=== PATIENT | male | born 1930 | race Caucasian/White ===

== ENCOUNTER 2016-10-24 18:53 | Inpatient (IN) | payer MEDICARE, OTHER ==
[~2016-10-24] VITALS: Ht 182.9 cm; Wt 97.3 kg
[~2016-10-24 18:53] MED LIST: ASPI81TA; GLYB5TAB8; LISI-646; PIOG45TA6; PRO20T; SITA50TA13; TRIA50CA38; VEN75XRT; VENL150C OR
[2016-10-24] MEDS ORDERED: DEXTROSE 50% SYRINGE 50 ML IV ONE (19:14)
[2016-10-24] MEDS ORDERED: DEXTROSE (50%) 50ML SYRG IV ONE ×2 (19:30)
[2016-10-24 20:59] LABS: Basophils # (auto) 0 uL; Basophils % (auto) 0.4 % (0.0-2.0); DEFINITIVE VIEW TRANSMISSION; Eosinophils # (auto) 0 uL; Eosinophils % (auto) 0.7 % (0.0-7.0); Hematocrit 36.9 % (41.0-53.0); Hemoglobin 12.3 g/dL (13.5-17.5); Lymphocytes # (auto) 1.1 uL; Lymphocytes % (auto) 19.1 % (10.0-50.0); Mean Corpuscular Hemoglobin 34.9 pg (28.0-32.0); Mean Corpuscular Hgb Conc. 33.2 g/dL (32.0-36.0); Mean Corpuscular Volume 105.2 fL (80.0-100.0); Monocytes # (auto) 0.4 uL; Monocytes % (auto) 7.5 % (0.0-12.0); Neutrophils # (auto) 4.3 uL; Neutrophils % (auto) 72.3 % (37.0-80.0); Platelet Count (auto) 164 10^3/uL (140-450); Red Cell Distribution Width 14.3 % (11.6-16.0); White Blood Cell 5.9 10^3/uL (4.4-10.8)
[2016-10-24 21:12] LABS: INR 1.1 (0.9-1.15); Partial Thromboplastin Time 24.7 sec (22.64-33.71); Prothrombin Time 11.3 sec (9.37-12.3)
[2016-10-24 21:20] LABS: Anion Gap 8 (5-15); Aspartate Aminotransferase 14 U/L (15-37); BUN/Creatinine Ratio 13.6; Blood Urea Nitrogen 17 mg/dL (7-18); Calcium 8.6 mg/dL (8.5-10.1); Carbon Dioxide 28 mmol/L (21-32); Chloride 103 mmol/L (98-107); GFR African American 71 mL/min; GFR Non-African American 58 mL/min; Glucose 150 mg/dL (74-106); Magnesium 2.2 mg/dL (1.6-2.6); Sodium 139 mmol/L (136-145)
[2016-10-24 21:25] LABS: Albumin 3.4 g/dL (3.4-5.0); Alkaline Phosphatase 82 U/L (45-117); Bilirubin, Total 0.5 mg/dL (0.2-1.0); Total Protein 7.3 g/dL (6.4-8.2)
[2016-10-24 21:27] LABS: B-Type Natriuretic Peptide 68.91 pg/mL (0-100)
[2016-10-24 21:35] LABS: Temperature: 23.1 C (20.0-25.0)
[2016-10-25] MEDS ORDERED: MORPHINE SULF INJ 2 MG/ML SYRINGE 1ML IV PRN (01:45)
[2016-10-25] MEDS ORDERED: ONDANSETRON HCL 4 MG/2 ML VIAL IV PRN (01:45)
[2016-10-25] MEDS ORDERED: DEXTROSE (50%) 50ML SYRG IV PRN (01:45)
[2016-10-25] MEDS ORDERED: NITROGLYCERIN 0.4 MG SL TAB SL PRN (01:45)
[2016-10-25] MEDS ORDERED: ACETAMINOPHEN 325 MG TAB PO PRN (01:45)
[2016-10-25] MEDS ORDERED: HYDROcodone-ACET 5/325MG TAB PO PRN (01:45)
[2016-10-25 05:22] VITALS: BP 140/93
[2016-10-25] MEDS: InsuLIN REG 1unit/0.01ml Soln (100units/ml) SC SCH ×3 (06:00→17:32)
[2016-10-25] MEDS: ACCU-CHEK COMFORT CURVE STRIP VI SCH ×3 (06:10→17:27)
[2016-10-25] MEDS: glyBURIDE 5 MG TAB PO SCH (06:39)
[2016-10-25 09:00] VITALS: BP 115/58
[2016-10-25] MEDS: ENOXAPARIN SOD 40 MG/0.4 ML SYRINGE SC SCH (09:13)
[2016-10-25] MEDS: FAMOTIDINE 20 MG TAB PO SCH ×2 (09:13→22:07)
[2016-10-25] MEDS: HCTZ 25 MG TAB PO SCH (09:13)
[2016-10-25] MEDS: VENLAFAXINE HCL 37.5MG TABLET PO SCH ×2 (09:14→22:08)
[2016-10-25 13:00] VITALS: BP 137/75
[2016-10-25 17:00] VITALS: BP 147/81
[2016-10-25 22:00] VITALS: BP 163/85
[2016-10-26 05:30] VITALS: BP 151/74
[2016-10-26] MEDS: InsuLIN REG 1unit/0.01ml Soln (100units/ml) SC SCH ×4 (06:00→17:37)
[2016-10-26 06:01] LABS: Basophils # (auto) 0 uL; Basophils % (auto) 1.2 % (0.0-2.0); DEFINITIVE VIEW TRANSMISSION; Eosinophils # (auto) 0.1 uL; Eosinophils % (auto) 1.6 % (0.0-7.0); Hematocrit 36.9 % (41.0-53.0); Hemoglobin 12.3 g/dL (13.5-17.5); Lymphocytes # (auto) 1.4 uL; Lymphocytes % (auto) 36.2 % (10.0-50.0); Mean Corpuscular Hgb Conc. 33.4 g/dL (32.0-36.0); Mean Platelet Volume 9.3 fL (7.4-10.4); Monocytes # (auto) 0.6 uL; Monocytes % (auto) 16.5 % (0.0-12.0); Neutrophils # (auto) 1.7 uL; Neutrophils % (auto) 44.5 % (37.0-80.0); Platelet Count (auto) 159 10^3/uL (140-450); Red Cell Distribution Width 14.1 % (11.6-16.0); White Blood Cell 3.9 10^3/uL (4.4-10.8)
[2016-10-26] MEDS: ACCU-CHEK COMFORT CURVE STRIP VI SCH ×4 (06:10→17:18)
[2016-10-26 06:15] LABS: Calcium 8.7 mg/dL (8.5-10.1); Potassium 3.9 mmol/L (3.5-5.1)
[2016-10-26 06:18] LABS: Albumin 3.4 g/dL (3.4-5.0); BUN/Creatinine Ratio 14.4; Magnesium 1.9 mg/dL (1.6-2.6)
[2016-10-26 06:21] LABS: Bilirubin, Total 0.8 mg/dL (0.2-1.0); Total Protein 7.1 g/dL (6.4-8.2)
[2016-10-26] MEDS: glyBURIDE 5 MG TAB PO SCH (06:33)
[2016-10-26 08:05] VITALS: BP 133/83
[2016-10-26] MEDS: VENLAFAXINE HCL 37.5MG TABLET PO SCH ×2 (09:55→22:02)
[2016-10-26] MEDS: FAMOTIDINE 20 MG TAB PO SCH ×2 (09:56→22:02)
[2016-10-26] MEDS: HCTZ 25 MG TAB PO SCH (09:56)
[2016-10-26] MEDS: ENOXAPARIN SOD 40 MG/0.4 ML SYRINGE SC SCH (09:56)
[2016-10-26 12:36] VITALS: BP 147/80
[2016-10-26 16:59] VITALS: BP 143/75
[2016-10-26 21:15] VITALS: BP 140/80
[2016-10-27] MEDS: ACCU-CHEK COMFORT CURVE STRIP VI SCH ×5 (00:48→21:36)
[2016-10-27] MEDS: InsuLIN REG 1unit/0.01ml Soln (100units/ml) SC SCH ×5 (00:49→21:48)
[2016-10-27 05:33] VITALS: BP 131/77
[2016-10-27] MEDS: glyBURIDE 5 MG TAB PO SCH (06:40)
[2016-10-27 09:00] VITALS: BP 122/73
[2016-10-27] MEDS: ENOXAPARIN SOD 40 MG/0.4 ML SYRINGE SC SCH (10:00)
[2016-10-27] MEDS: HCTZ 25 MG TAB PO SCH (10:43)
[2016-10-27] MEDS: FAMOTIDINE 20 MG TAB PO SCH ×2 (10:43→21:36)
[2016-10-27] MEDS: VENLAFAXINE HCL 37.5MG TABLET PO SCH ×2 (10:43→21:36)
[2016-10-27 13:00] VITALS: BP 143/78
[2016-10-27] MEDS ORDERED: DEXTROSE (50%) 50ML SYRG IV PRN (14:00)
[2016-10-27] MEDS ORDERED: LIDOCAINE 2%HCL (LOCAL ANESTH.) INJ 20ML MDV ONE (16:10)
[2016-10-27] MEDS ORDERED: IOHEXOL 350 MG/ML 100ML IJ ONE (16:10)
[2016-10-27] MEDS ORDERED: MIDAZOLAM HCL 1MG/1ML-2 ML VIAL ONE (16:31)
[2016-10-27] MEDS ORDERED: ANGIOMAX 250 MG VIAL IV ONE (16:31)
[2016-10-27] MEDS ORDERED: EPTIFIBATIDE INJ (2MG/ML) 10ML VIAL IV ONE (16:31)
[2016-10-27] MEDS ORDERED: SODIUM CHL 0.9% 50 ML ONE (16:31)
[2016-10-27] MEDS ORDERED: fentaNYL CITRATE 100 MCG/2 ML VL ONE (16:31)
[2016-10-27] MEDS ORDERED: TICAGRELOR 90 MG TAB ONE (17:26)
[2016-10-27 21:30] VITALS: BP 163/89
[2016-10-28 05:23] VITALS: BP 135/85
[2016-10-28 06:25] LABS: Basophils # (auto) 0 uL; Basophils % (auto) 0.6 % (0.0-2.0); DEFINITIVE VIEW TRANSMISSION; Eosinophils # (auto) 0 uL; Eosinophils % (auto) 0.7 % (0.0-7.0); Hematocrit 40.9 % (41.0-53.0); Hemoglobin 13.5 g/dL (13.5-17.5); Lymphocytes # (auto) 1.3 uL; Lymphocytes % (auto) 23.3 % (10.0-50.0); Mean Corpuscular Hemoglobin 34.7 pg (28.0-32.0); Mean Corpuscular Hgb Conc. 33.1 g/dL (32.0-36.0); Mean Corpuscular Volume 104.9 fL (80.0-100.0); Mean Platelet Volume 9.1 fL (7.4-10.4); Monocytes # (auto) 0.9 uL; Monocytes % (auto) 15.6 % (0.0-12.0); Neutrophils # (auto) 3.3 uL; Neutrophils % (auto) 59.8 % (37.0-80.0); Platelet Count (auto) 176 10^3/uL (140-450); Red Cell Distribution Width 13.8 % (11.6-16.0); White Blood Cell 5.5 10^3/uL (4.4-10.8)
[2016-10-28] MEDS: ACCU-CHEK COMFORT CURVE STRIP VI SCH ×4 (06:35→22:23)
[2016-10-28] MEDS: glyBURIDE 5 MG TAB PO SCH (06:35)
[2016-10-28] MEDS: InsuLIN REG 1unit/0.01ml Soln (100units/ml) SC SCH ×4 (06:36→22:00)
[2016-10-28 06:43] LABS: BUN/Creatinine Ratio 14.4; Calcium 8.8 mg/dL (8.5-10.1); Magnesium 1.9 mg/dL (1.6-2.6); Potassium 3.9 mmol/L (3.5-5.1)
[2016-10-28 09:10] VITALS: BP 127/73
[2016-10-28] MEDS: ENOXAPARIN SOD 40 MG/0.4 ML SYRINGE SC SCH (09:28)
[2016-10-28] MEDS: VENLAFAXINE HCL 37.5MG TABLET PO SCH ×2 (09:29→22:23)
[2016-10-28] MEDS: FAMOTIDINE 20 MG TAB PO SCH ×2 (09:29→22:23)
[2016-10-28] MEDS: TICAGRELOR 90 MG TAB PO SCH ×2 (09:29→22:24)
[2016-10-28] MEDS: HCTZ 25 MG TAB PO SCH (09:30)
[2016-10-28 12:58] VITALS: BP 112/63
[2016-10-28] MEDS ORDERED: LISINOPRIL 20 MG TAB PO SCH (15:00)
[2016-10-28 16:19] VITALS: BP 114/69
[2016-10-28] MEDS: ATORVASTATIN 20 MG TAB PO SCH (22:22)
[2016-10-28] MEDS: CARVEDILOL 3.125 MG TAB PO SCH (22:22)
[2016-10-29 05:02] LABS: Hematocrit 40.6 % (41.0-53.0); Hemoglobin 13.6 g/dL (13.5-17.5)
[2016-10-29 05:08] VITALS: BP 128/80
[2016-10-29 05:32] LABS: BUN/Creatinine Ratio 15.9; Calcium 9.1 mg/dL (8.5-10.1); Magnesium 2.1 mg/dL (1.6-2.6); Potassium 3.8 mmol/L (3.5-5.1)
[2016-10-29] MEDS: InsuLIN REG 1unit/0.01ml Soln (100units/ml) SC SCH ×4 (06:26→22:00)
[2016-10-29] MEDS: glyBURIDE 5 MG TAB PO SCH (06:59)
[2016-10-29] MEDS: ACCU-CHEK COMFORT CURVE STRIP VI SCH ×4 (06:59→22:15)
[2016-10-29 09:00] VITALS: BP_SYST 118; BP_SYST 124; BP_DIAS 66; BP_DIAS 69
[2016-10-29] MEDS ORDERED: CLOP75TA28 PO (09:45)
[2016-10-29] MEDS ORDERED: CAR3125T PO (09:45)
[2016-10-29] MEDS: FAMOTIDINE 20 MG TAB PO SCH ×2 (10:00→22:14)
[2016-10-29] MEDS: VENLAFAXINE HCL 37.5MG TABLET PO SCH ×2 (10:00→22:13)
[2016-10-29] MEDS: CARVEDILOL 3.125 MG TAB PO SCH ×2 (10:00→22:14)
[2016-10-29] MEDS: TICAGRELOR 90 MG TAB PO SCH ×2 (10:00→22:22)
[2016-10-29] MEDS: ENOXAPARIN SOD 40 MG/0.4 ML SYRINGE SC SCH (10:00)
[2016-10-29 10:50] LABS: Calcium 9.2 mg/dL (8.5-10.1); Potassium 3.9 mmol/L (3.5-5.1)
[2016-10-29 13:00] VITALS: BP 122/64
[2016-10-29] MEDS: SODIUM CHLORIDE 0.9% 1,000 ML IV SCH (13:30)
[2016-10-29 17:00] VITALS: BP 138/85
[2016-10-29 22:00] VITALS: BP 114/68
[2016-10-29] MEDS: ATORVASTATIN 20 MG TAB PO SCH (22:14)
[2016-10-30 05:00] VITALS: BP 125/76
[2016-10-30 05:16] LABS: BUN/Creatinine Ratio 16.9; Calcium 8.6 mg/dL (8.5-10.1); Potassium 4.3 mmol/L (3.5-5.1)
[2016-10-30] MEDS: ACCU-CHEK COMFORT CURVE STRIP VI SCH ×2 (06:44→11:55)
[2016-10-30] MEDS: InsuLIN REG 1unit/0.01ml Soln (100units/ml) SC SCH ×2 (06:44→11:55)
[2016-10-30] MEDS: glyBURIDE 5 MG TAB PO SCH (06:44)
[2016-10-30] MEDS: SODIUM CHLORIDE 0.9% 1,000 ML IV SCH (06:45)
[2016-10-30 09:16] VITALS: BP 132/80
[2016-10-30] MEDS: ENOXAPARIN SOD 40 MG/0.4 ML SYRINGE SC SCH (09:44)
[2016-10-30] MEDS: CARVEDILOL 3.125 MG TAB PO SCH (09:45)
[2016-10-30] MEDS: VENLAFAXINE HCL 37.5MG TABLET PO SCH (09:45)
[2016-10-30] MEDS: FAMOTIDINE 20 MG TAB PO SCH (09:45)
[2016-10-30] MEDS: TICAGRELOR 90 MG TAB PO SCH (09:45)
[2016-10-30] MEDS ORDERED: ATOR20TA50 PO (11:04)
[2016-10-30] MEDS ORDERED: ASPI81TA PO (11:07)
[2016-10-30] MEDS ORDERED: LISI-646 PO (11:07)
[2016-10-30 12:40] VITALS: BP 114/73
== END 2016-10-30 13:50 | disposition home health service (06) | DRG 246 ==
LOC: EDBD 18:53 → ER 18:56 → WEST WING 18:57 → TELE-WESTW 10-25 02:45
PROVIDERS: ADMIT Nurse Practitioner; ATTEND Internal Medicine
PROC: 027035Z Dilation of Coronary Artery, One Artery with Two Drug-eluting Intraluminal Devices, Percutaneous Approach (ICD-10-PCS; principal; 2016-10-27)
PROC: 4A023N7 Measurement of Cardiac Sampling and Pressure, Left Heart, Percutaneous Approach (ICD-10-PCS; 2016-10-27)
PROC: B2111ZZ Fluoroscopy of Multiple Coronary Arteries using Low Osmolar Contrast (ICD-10-PCS; 2016-10-27)
DX: I25.10 Atherosclerotic heart disease of native coronary artery without angina pectoris (principal); N17.0 Acute kidney failure with tubular necrosis; J98.11 Atelectasis; E11.649 Type 2 diabetes mellitus with hypoglycemia without coma; I50.9 Heart failure, unspecified; D64.9 Anemia, unspecified; I11.0 Hypertensive heart disease with heart failure; R00.1 Bradycardia, unspecified; I25.5 Ischemic cardiomyopathy; Z86.73 Personal history of transient ischemic attack (TIA), and cerebral infarction without residual deficits; Z83.3 Family history of diabetes mellitus; Z82.49 Family history of ischemic heart disease and other diseases of the circulatory system; Z23 Encounter for immunization
CPT/HCPCS: 36415; 70450; 71010; 73090; 80048; 80053; 80061; 82962; 83036; 83735; 83880; 84443; 84484; 85014; 85018; 85025; 85610; 85730; 86850; 86900; 86901; 93005; 93306; 94761; 96374; 97001; 97116; 97530; 99152; C1874; J1815; J2250

== ENCOUNTER → 2016-11-07 | Outpatient (CLI) | payer MEDICARE, OTHER ==
[~2016-11-07] MED LIST changes: -ASPI81TA; +ASPI81TA PO; +ATOR20TA50 PO; +CAR3125T PO; +CLOP75TA28 PO; -LISI-646; +LISI-646 PO; -PRO20T; -TRIA50CA38
[2016-11-07 09:09] LABS: Urine RBC None Seen /hpf (0 - 3)
[2016-11-07 09:21] LABS: Basophils # (auto) 0 uL; DEFINITIVE VIEW TRANSMISSION; Eosinophils # (auto) 0.1 uL; Eosinophils % (auto) 2.5 % (0.0-7.0); Hematocrit 35.1 % (41.0-53.0); Hemoglobin 11.8 g/dL (13.5-17.5); Lymphocytes % (auto) 32.4 % (10.0-50.0); Mean Corpuscular Hemoglobin 35.1 pg (28.0-32.0); Mean Corpuscular Hgb Conc. 33.5 g/dL (32.0-36.0); Mean Corpuscular Volume 104.7 fL (80.0-100.0); Mean Platelet Volume 9.3 fL (7.4-10.4); Monocytes # (auto) 0.5 uL; Neutrophils # (auto) 1.6 uL; Neutrophils % (auto) 49.1 % (37.0-80.0); Platelet Count (auto) 207 10^3/uL (140-450); White Blood Cell 3.2 10^3/uL (4.4-10.8)
[2016-11-07 09:24] LABS: Urine Bilirubin Negative (Negative); Urine Blood Negative /uL (Negative); Urine Color Yellow (Yellow); Urine Glucose Normal (Normal); Urine Ketone Negative (Negative); Urine Nitrite Negative (Negative); Urine Squamous Epithelial Cell FEW /hpf (<5); Urine Urobilinogen Normal (Negative)
[2016-11-07 09:48] LABS: Albumin 3.7 g/dL (3.4-5.0); BUN/Creatinine Ratio 13.4; Bilirubin, Total 0.7 mg/dL (0.2-1.0); Calcium 9.1 mg/dL (8.5-10.1); Potassium 4.6 mmol/L (3.5-5.1); Total Protein 7.4 g/dL (6.4-8.2)
== END | disposition home or self-care (01) ==
LOC: LAB 08:22
DX: E11.21 Type 2 diabetes mellitus with diabetic nephropathy (principal); R56.9 Unspecified convulsions
CPT/HCPCS: 36415; 80053; 80061; 81001; 82043; 83036; 85025

== ENCOUNTER → 2017-04-14 | Outpatient (CLI) | payer MEDICARE, OTHER ==
[2017-04-14 08:58] LABS: Basophils # (auto) 0 uL; Basophils % (auto) 0.6 % (0.0-2.0); CONDITION Y; DEFINITIVE SEE PRINTOUT; Eosinophils # (auto) 0.1 uL; Eosinophils % (auto) 3.7 % (0.0-7.0); Hematocrit 37.7 % (41.0-53.0); Hemoglobin 12.5 g/dL (13.5-17.5); Lymphocytes # (auto) 1.2 uL; Lymphocytes % (auto) 29.9 % (10.0-50.0); Mean Corpuscular Hgb Conc. 33.3 g/dL (32.0-36.0); Mean Corpuscular Volume 108.3 fL (80.0-100.0); Mean Platelet Volume 9.3 fL (7.4-10.4); Monocytes # (auto) 0.5 uL; Monocytes % (auto) 12.6 % (0.0-12.0); Neutrophils # (auto) 2.1 uL; Neutrophils % (auto) 53.2 % (37.0-80.0); Platelet Count (auto) 190 10^3/uL (140-450); Red Cell Distribution Width 14.9 % (11.6-16.0)
[2017-04-14 09:03] LABS: Urine Bilirubin Negative (Negative); Urine Blood Negative /uL (Negative); Urine Color Yellow (Yellow); Urine Glucose Normal (Normal); Urine Ketone Negative (Negative); Urine Mucus FEW (None Seen); Urine Nitrite Negative (Negative); Urine RBC <1 /hpf (0 - 3); Urine pH 5.5 (5.0-8.0)
[2017-04-14 09:38] LABS: Albumin 3.6 g/dL (3.4-5.0); BUN/Creatinine Ratio 13.9; Bilirubin, Total 0.5 mg/dL (0.2-1.0); Calcium 9.4 mg/dL (8.5-10.1); Potassium 4.6 mmol/L (3.5-5.1); Total Protein 7.5 g/dL (6.4-8.2)
== END | disposition home or self-care (01) ==
LOC: LAB 07:57
PROVIDERS: ATTEND Internal Medicine
DX: I10 Essential (primary) hypertension (principal); E78.2 Mixed hyperlipidemia; E55.9 Vitamin D deficiency, unspecified; I25.10 Atherosclerotic heart disease of native coronary artery without angina pectoris; E11.9 Type 2 diabetes mellitus without complications; R97.20 Elevated prostate specific antigen [PSA]
CPT/HCPCS: 36415; 80053; 80061; 81001; 82043; 82306; 83036; 84153; 85025

== ENCOUNTER 2017-06-30 16:03 | Emergency (ER) | payer MEDICARE, OTHER ==
[~2017-06-30] VITALS: Ht 182.9 cm; Wt 99.8 kg
[2017-06-30] MEDS ORDERED: KETOROLAC TROMETH 30 MG/ML 1ML VIAL IV ONE (18:30)
[2017-06-30 20:08] LABS: Eosinophils # (auto) 0 uL; Lymphocytes # (auto) 1.1 uL
[2017-06-30 20:14] LABS: Basophils # (auto) 0 uL; Basophils % (auto) 0.7 % (0.0-2.0); Hematocrit 34.7 % (41.0-53.0); Hemoglobin 11.7 g/dL (13.5-17.5); Lymphocytes % (auto) 20.7 % (10.0-50.0); Mean Corpuscular Hemoglobin 37.6 pg (28.0-32.0); Mean Corpuscular Hgb Conc. 33.8 g/dL (32.0-36.0); Mean Corpuscular Volume 111.1 fL (80.0-100.0); Mean Platelet Volume 9.2 fL (6.9-10.8); Monocytes # (auto) 0.8 uL; Monocytes % (auto) 16.1 % (0.0-12.0); Neutrophils # (auto) 3.2 uL; Neutrophils % (auto) 61.5 % (37.0-80.0); Nucleated Red Blood Cells % 0.2 %; Platelet Count (auto) 168 10^3/uL (140-450); Red Cell Distribution Width 13.7 % (11.8-14.3); White Blood Cell 5.2 10^3/uL (4.4-10.8)
[2017-06-30 20:26] LABS: Albumin 3.2 g/dL (3.4-5.0); Anion Gap 7 (5-15); Aspartate Aminotransferase 15 U/L (15-37); BUN/Creatinine Ratio 22.1; Blood Urea Nitrogen 27 mg/dL (7-18); Calcium 9.3 mg/dL (8.5-10.1); Carbon Dioxide 28 mmol/L (21-32); Chloride 94 mmol/L (98-107); GFR African American 73 mL/min; GFR Non-African American 60 mL/min; Glucose 361 mg/dL (74-106); Magnesium 2.2 mg/dL (1.6-2.6); Sodium 129 mmol/L (136-145)
[2017-06-30 20:43] LABS: Alkaline Phosphatase 90 U/L (45-117); Bilirubin, Total 0.6 mg/dL (0.2-1.0); Total Protein 7.3 g/dL (6.4-8.2)
[2017-06-30 21:05] LABS: B-Type Natriuretic Peptide 29.5 pg/mL (0-100)
[2017-06-30 23:00] VITALS: BP 106/57
== END 2017-06-30 23:06 | disposition home or self-care (01) ==
LOC: ER 16:03 → EDBD 16:03 → ER 23:06
DX: S22.41XA Multiple fractures of ribs, right side, initial encounter for closed fracture (principal); R41.82 Altered mental status, unspecified; E11.9 Type 2 diabetes mellitus without complications; E78.00 Pure hypercholesterolemia, unspecified; I11.0 Hypertensive heart disease with heart failure; I50.9 Heart failure, unspecified; Z86.73 Personal history of transient ischemic attack (TIA), and cerebral infarction without residual deficits; Z79.82 Long term (current) use of aspirin; W19.XXXA Unspecified fall, initial encounter; Y93.89 Activity, other specified; Y92.89 Other specified places as the place of occurrence of the external cause; Y99.8 Other external cause status
CPT/HCPCS: 36415; 70450; 71250; 74176; 80053; 83735; 83880; 84484; 85025; 96374; 99285; J1885

== ENCOUNTER 2017-07-13 09:14 | Emergency (ER) | payer MEDICARE, OTHER ==
[~2017-07-13] VITALS: Ht 180.3 cm; Wt 98.9 kg
[2017-07-13] MEDS ORDERED: MORPHINE SULF INJ 2 MG/ML SYRINGE 1ML IV ONE (10:00)
[2017-07-13] MEDS ORDERED: ONDANSETRON HCL 4 MG/2 ML VIAL IV ONE (10:00)
[2017-07-13 10:57] LABS: White Blood Cell 4.7 10^3/uL (4.4-10.8)
[2017-07-13 10:59] LABS: Hematocrit 32.6 % (41.0-53.0); Hemoglobin 11.2 g/dL (13.5-17.5); Mean Corpuscular Hemoglobin 37.4 pg (28.0-32.0); Mean Corpuscular Hgb Conc. 34.4 g/dL (32.0-36.0); Mean Corpuscular Volume 108.8 fL (80.0-100.0); Platelet Count (auto) 177 10^3/uL (140-450); Red Cell Distribution Width 13.5 % (11.8-14.3)
[2017-07-13 11:01] LABS: Metamyelocytes % 0; Myelocytes % 0; Promyelocytes % 0; Reactive Lymphocytes 0
[2017-07-13 11:15] LABS: INR 1.05 (0.9-1.15); Partial Thromboplastin Time 25.9 sec (22.64-33.71); Prothrombin Time 11.4 sec (9.37-12.3)
[2017-07-13 11:18] LABS: Albumin 3.1 g/dL (3.4-5.0); Alkaline Phosphatase 148 U/L (45-117); Anion Gap 8 (5-15); Aspartate Aminotransferase 15 U/L (15-37); BUN/Creatinine Ratio 14.5; Bilirubin, Total 0.8 mg/dL (0.2-1.0); Blood Urea Nitrogen 16 mg/dL (7-18); Calcium 8.5 mg/dL (8.5-10.1); Carbon Dioxide 28 mmol/L (21-32); Chloride 98 mmol/L (98-107); GFR African American 82 mL/min; GFR Non-African American 68 mL/min; Glucose 272 mg/dL (74-106); Magnesium 1.8 mg/dL (1.6-2.6); Potassium 4.5 mmol/L (3.5-5.1); Sodium 134 mmol/L (136-145); Total Protein 7.2 g/dL (6.4-8.2)
[2017-07-13 11:19] LABS: Macrocytosis Moderate; Ovalocytes FEW; Platelet Estimate Adequate; Stomatocytes Few
[2017-07-13 14:27] VITALS: BP 135/80
== END 2017-07-13 14:33 | disposition home or self-care (01) ==
LOC: EDBD 09:14 → ER 09:14
DX: S30.0XXA Contusion of lower back and pelvis, initial encounter (principal); I50.9 Heart failure, unspecified; I11.0 Hypertensive heart disease with heart failure; E11.65 Type 2 diabetes mellitus with hyperglycemia; D64.9 Anemia, unspecified; W01.0XXA Fall on same level from slipping, tripping and stumbling without subsequent striking against object, initial encounter; Y93.89 Activity, other specified; Y92.89 Other specified places as the place of occurrence of the external cause; Y99.8 Other external cause status; Z91.81 History of falling; Z86.73 Personal history of transient ischemic attack (TIA), and cerebral infarction without residual deficits; Z79.82 Long term (current) use of aspirin; Z85.828 Personal history of other malignant neoplasm of skin; Z79.899 Other long term (current) drug therapy
CPT/HCPCS: 36415; 71010; 72131; 73502; 80053; 83735; 84484; 85007; 85027; 85610; 85730; 93005; 94761; 96374; 96375; 99285; J2270; J2405